=== PATIENT | male | born 1955 | race Caucasian/White ===

== ENCOUNTER 2018-08-23 15:00 | Emergency (ER) | payer OTHER ==
[~2018-08-23] VITALS: Ht 177.8 cm; Wt 83.9 kg
[~2018-08-23 15:00] MED LIST: BENTYL20 MG; BENTYL20 MG PO; CELEBREX 200 M200 MG PO; DILTIAZEM ER120 M1 PO; FENOFIBRATE160 MG PO; FISHOIL PO; MULTIVITAMINS PO; PRILOSEC 20 MG20 MG PO; SIMVASTATIN80 MG PO
[2018-08-23] MEDS ORDERED: HUMIRA10 MG/0.1 SUBQ (15:15)
[2018-08-23] MEDS ORDERED: HYDROCHLOROTH12.5 M1 PO (15:15)
[2018-08-23 15:33] LABS: ANION GAP 12 mmol/L (7-16); BUN 20 mg/dL (7-18); CHLORIDE 104 mmol/L (98-107); CO2 26 mmol/L (21-32); CREATININE 0.8 mg/dL (0.6-1.3); GLUCOSE 119 mg/dL (70-99); POTASSIUM 3.3 mmol/L (3.5-5.1); SODIUM 142 mmol/L (136-145)
[2018-08-23 15:35] LABS: APTT 24.3 Seconds (25.0-31.3); PROTIME 10.5 Seconds (9.20-11.50)
[2018-08-23 15:41] LABS: ABSOLUTE BASOPHILS 0.1 thou/uL (0.0-0.2); ABSOLUTE EOSINOPHILS 0.2 thou/uL (0.0-0.7); ABSOLUTE LYMPHOCYTES 1.3 thou/uL (0.8-5.3); ABSOLUTE MONOCYTES 0.5 thou/uL (0.0-1.2); ABSOLUTE NEUTROPHILS 2.8 thou/uL (1.6-8.1); EOSINOPHILS 3.7 %; HEMATOCRIT 40.6 % (42.0-52.0); HEMOGLOBIN 14.9 gm/dL (14.0-18.0); LYMPHOCYTES 27.3 %; MCH 40.4 pg (26.0-34.0); MCHC 36.8 g/dL (28.0-37.0); MCV 109.9 fL (80.0-100.0); MONOCYTES 10.4 %; MPV 9.9 fl. (7.2-11.1); NUCLEATED RBCS 0 /100WBC; POLYS 57.6 %; RBC 3.69 mil/uL (4.50-6.00); RDW-CV 12.9 % (10.5-14.5); WBC 4.9 thou/uL (4.0-11.0)
[2018-08-23 15:48] LABS: ALBUMIN 4.2 g/dL (3.4-5.0); ALKALINE PHOSPHATASE 43 U/L (46-116); CK-MB MASS 1.5 ng/mL (<0.5-3.6); LIPASE 117 U/L (73-393); MAGNESIUM 1.5 mg/dL (1.8-2.4); NT-PRO BRAIN NAT PEPTIDE 10 pg/mL (<300); SGOT 43 U/L (15-37); SGPT 43 U/L (30-65); TOTAL BILIRUBIN 0.6 mg/dL (<0.1-1.0); TOTAL PROTEIN 7.7 g/dL (6.4-8.2); TROPONIN-I LEVEL <0.06 ng/mL (<0.06)
[2018-08-23 16:15] LABS: PLATELET ESTIMATE ADEQUATE
[2018-08-23 16:16] LABS: PLATELET COUNT* 200 thou/uL (150-400)
[2018-08-23 16:32] VITALS: BP 174/90
--- NOTE | 2018-08-24 10:47 | EKG ---
[place] [address] ELECTROCARDIOGRAM REPORT Name: FRANCISCO WONG [id number] Admission: 08/23/18 Attend Phys: Discharge: 08/23/18 Date of : 59 Report #: [id number] THIS REPORT FOR: //name// [facility] ED Test Date: 2018-08-23 Test Time: 15:06:41 Pat Name: FRANCISCO WONG Department: Room: Gender: M Nail Tech: ANNETTE : 1955 Requested By: Mauricio Frank Order Number: [id number] MD: Richard Ibarra Measurements Intervals [place] Rate: 90 P: 38 KS: 207 QRS: 0 QRSD: 111 T: 26 QT: 366 QTc: 448 Interpretive Statements Sinus rhythm Borderline prolonged [place] interval RSR' in V1 or V2, right VCD Baseline wander in lead(s) V1 Compared to ECG 05/24/2011 12:26:53 RSR' in V1 or V2 now present Electronically Signed On 08-24-2018 10:47:22 CDT by Richard Ibarra [email or web address] <ELECTRONICALLY SIGNED> By: Richard Ibarra MD, [facility] 08/24/18 [id number] Richard Ibarra MD, [facility] /EPI
== END 2018-08-23 16:33 | disposition home or self-care (01) ==
LOC: M.ERS 15:00
PROVIDERS: Family Medicine
DX: R07.89 Other chest pain (principal); I10 Essential (primary) hypertension; E78.00 Pure hypercholesterolemia, unspecified; K21.9 Gastro-esophageal reflux disease without esophagitis; M06.9 Rheumatoid arthritis, unspecified; Z96.642 Presence of left artificial hip joint